=== PATIENT | male | born 1975 | race Two or more races ===

== ENCOUNTER 2020-12-27 09:33 | Emergency (ER) | payer SELFPAY ==
[~2020-12-27] VITALS: Ht 175.3 cm; Wt 81.6 kg
[2020-12-27 14:05] LABS: HEMOGLOBIN 17.7 gm/dl (14.0-17.5); RED BLOOD COUNT 5.84 M/UL (4.20-5.50); WHITE BLOOD COUNT 4.2 K/UL (4.5-11.0)
[2020-12-27 15:57] LABS: BUN/CREATININE RATIO 17 (0-10)
[2020-12-27] MEDS ORDERED: CEFUROXIME500 MG PO (17:02)
== END 2020-12-27 21:20 | disposition home or self-care (01) ==
LOC: ER1 09:33
PROVIDERS: Preventive Medicine Occupational Medicine
DX: Z23 Encounter for immunization (principal); U07.1 COVID-19; N39.0 Urinary tract infection, site not specified; E86.0 Dehydration
CPT/HCPCS: 36600; 70450; 71045; 80053; 80307; 81001; 82009; 82550; 82553; 82803; 82962; 83036; 83605; 83690; 83874; 84484; 85025; 85652; 86140; 87040; 87086; 93005; 96374; 96375; 99285; J0696; J7030; M0243; U0002